=== PATIENT | female | born 1985 ===

== ENCOUNTER 2016-11-23 10:34 | Emergency (ER) | payer OTHER ==
[2016-11-23 10:55] VITALS: BMI 28.3
[2016-11-23 10:57] VITALS: BP 149/81; PULSE 82; RESP 17; TEMP 98; O2SAT 100
--- NOTE | 2016-11-23 11:53 | ED PDOC ---
HPI: Chest Pain Time Seen by Provider: 11/23/16 11:20 Chief Complaint (Nursing): Back Pain Chief Complaint (Provider): Right sided chest pain x 1 week History Per: Patient History/Exam Limitations: no limitations Onset/Duration Of Symptoms: Days Current Symptoms Are (Timing): Still Present Additional Complaint(s): Pt states she has a chronic dry cough but for one week she has been having right sided chest pain, worse with coughing. Pt states she has never had this before although the cough has been constant with her asthma. Pt states she stopped smoking 1 week ago when she was told she had fluid in her lungs last weeks when she was seen at [facility] [place]. Pt states that is also now having right leg pain, posterior leg, mostly in the calf. Pt states it is very mild but also in the left left. Pt states she is on the depo shot. Past Medical History Reviewed: Historical Data, Nursing Documentation, Vital Signs Vital Signs: Last Vital Signs Temp 98 F 11/23/16 10:55 Pulse 82 11/23/16 10:55 Resp 17 11/23/16 10:55 BP 149/81 11/23/16 10:55 Pulse Ox 100 11/23/16 11:54 - Medical History PMH: Asthma - Surgical History Surgical History: No Surg Hx - Family History Family History: States: No Known Family Hx - Living Arrangements Living Arrangements: With Family - Social History Current smoker - smoking cessation education provided: Yes (Stopped one week ago ) Alcohol: None Drugs: Denies - Allergies Allergies/Adverse Reactions: Allergies Allergy/AdvReac Type Severity Reaction Status Date / Time morphine Allergy ITCHING Verified 11/23/16 14:35 Review of Systems ROS Statement: Except As Marked, All Systems Reviewed And Found Negative Cardiovascular: Positive for: Chest Pain Respiratory: Positive for: Cough Musculoskeletal: Positive for: Leg Pain Physical Exam - Reviewed Nursing Documentation Reviewed: Yes Vital Signs Reviewed: Yes - Physical Exam Appears: Positive for: Well, Non-toxic, No Acute Distress Head Exam: Positive for: ATRAUMATIC, NORMAL INSPECTION, NORMOCEPHALIC Skin: Positive for: Normal Color, Warm, DRY Eye Exam: Positive for: Normal appearance ENT: Positive for: Normal ENT Inspection Neck: Positive for: Normal, Painless ROM Cardiovascular/Chest: Positive for: Regular Rate, Rhythm Respiratory: Positive for: Normal Breath Sounds. Negative for: Accessory Muscle Use, Respiratory Distress Gastrointestinal/Abdominal: Positive for: Normal Exam, Bowel Sounds, Soft. Negative for: Tenderness Back: Positive for: Normal Inspection Extremity: Positive for: Normal ROM, Calf Tenderness Neurologic/Psych: Positive for: Alert, Oriented - Laboratory Results Result Diagrams: 11/23/16 12:00 11/23/16 12:00 - ECG O2 Sat by Pulse Oximetry: 100 Disposition - Clinical Impression Clinical Impression: Back pain - Disposition Referrals: [facility] [Outside] Disposition: Routine/Home Disposition Time: 18:18 Condition: GOOD Instructions: Chest Pain (ED)
[2016-11-23 12:20] LABS: HEMATOCRIT 41.8 % (34.0-47.0); MEAN CELL VOLUME 93.8 fl (81.0-99.0); MEAN CORPUSCULAR HEMOGLOBIN 32.1 pg (27.0-31.0); MEAN CORPUSCULAR HGB CONC 34.2 g/dL (33.0-37.0); RED CELL DISTRIBUTION WIDTH 13.1 % (11.5-14.5); WHITE BLOOD COUNT 8.2 K/uL (4.8-10.8)
[2016-11-23 12:29] LABS: ALB/GLOB RATIO 1.2 (1.0-2.1); ALKALINE PHOSPHATASE 64 U/L (38-126); ALT/SGPT 36 U/L (9-52); AST/SGOT 69 U/L (14-36); BILIRUBIN,TOTAL 0.9 mg/dl (0.2-1.3); BLOOD UREA NITROGEN 16 mg/dl (7-17); CALCIUM 8.9 mg/dL (8.4-10.2); CARBON DIOXIDE 21 mmol/L (22-30); CHLORIDE 109 mmol/L (98-107); GFR AFRICAN-AMERICAN > 60; GLUCOSE,RANDOM 100 mg/dL (65-105); SODIUM 141 mmol/l (132-148); TOTAL PROTEIN 7.2 G/DL (6.3-8.2)
[2016-11-23 12:30] LABS: POTASSIUM 4.5 MMOL/L (3.6-5.0)
[2016-11-23 12:42] LABS: PARTIAL THROMBOPLASTIN TIME 26.8 SECONDS (23.3-32.5)
--- NOTE | 2016-11-23 14:02 | US ---
PROCEDURE: Bilateral lower extremity venous duplex Doppler. HISTORY: calf pain COMPARISON: None available. TECHNIQUE: Bilateral common femoral, superficial femoral, popliteal and posterior tibial veins were evaluated. Flow was assessed with color Doppler, compressibility, assessment of phasic flow and augmentation response. FINDINGS: COMMON FEMORAL VEIN: Right CFV: Unremarkable. Left CFV: Unremarkable. SUPERFICIAL FEMORAL VEIN: Right SFV: Unremarkable. Left SFV: Unremarkable. POPLITEAL VEIN: Right Popliteal: Unremarkable. Left Popliteal: Unremarkable. POSTERIOR TIBIAL VEIN: Right PTV: Unremarkable. Left PTV: Unremarkable. OTHER FINDINGS: None. IMPRESSION: No evidence of deep venous thrombosis.
[2016-11-23] MEDS ORDERED: DiphenhydrAMINE 50 mg/ml Inj ONE (14:28)
[2016-11-23] MEDS: DiphenhydrAMINE 50 mg/ml Inj IVP STA (14:36)
--- NOTE | 2016-11-23 15:44 | RAD ---
HISTORY: chest pain with coughing COMPARISON: No prior. TECHNIQUE: Chest PA and lateral FINDINGS: LUNGS: No active pulmonary disease. PLEURA: No significant pleural effusion identified. No pneumothorax apparent. CARDIOVASCULAR: Normal. OSSEOUS STRUCTURES: No significant abnormalities. VISUALIZED UPPER ABDOMEN: Normal. OTHER FINDINGS: None. IMPRESSION: No active disease.
[2016-11-23] MEDS ORDERED: Iodixanol 320 MG/ML 100 ML BOTTLE IV ONE (16:04)
[2016-11-23] MEDS ORDERED: Sodium Chloride 0.9% 50 ML IV ONE (16:05)
[2016-11-23 16:54] LABS: RBC URINE 3 /hpf (0-3); URINE BACTERIA RARE (<OCC); URINE BILIRUBIN NEGATIVE (NEGATIVE); URINE BLOOD NEGATIVE (NEGATIVE); URINE COLOR YELLOW (YELLOW); URINE GLUCOSE (UA) NEG (Normal); URINE KETONE NEGATIVE (NEGATIVE); URINE LEUKOCYTE ESTERASE MOD Leu/uL (Negative); URINE PROTEIN 30 mg/dL (NEGATIVE); URINE UROBILINOGEN 0.2-1.0 mg/dL (0.2-1.0); WBC URINE 6 /hpf (0-5)
--- NOTE | 2016-11-23 17:58 | CT ---
PROCEDURE: CT Chest with contrast (Pulmonary Angiogram) HISTORY: Right-sided chest pain COMPARISON: None available. TECHNIQUE: Axial computed tomography images were obtained of the chest in the pulmonary arterial phase of enhancement. Coronal and sagittal reformatted images were created and reviewed. Intravenous contrast dose: 90 mL Visipaque 320 Radiation dose: Total exam DLP = 333.37 MGy-cm. FINDINGS: PULMONARY ARTERIES: There are no filling defects in the central pulmonary arteries or segmental branches to suggest acute pulmonary embolism. AORTA: The aorta is normal in caliber. No evidence of aortic aneurysm or dissection. LUNGS: The lungs are well inflated. There is a 3 mm subpleural nodule in the superior segment of the right lower lobe laterally. There is mild left basilar atelectasis. No suspicious nodule, mass or pulmonary consolidation. PLEURAL SPACES: No effusion or pneuomothorax. HEART: No cardiomegaly. No significant pericardial effusion. LYMPH NODES: No lymphadenopathy. BONES, CHEST WALL: Within normal limits. No fracture or destructive lesion OTHER FINDINGS: Unremarkable. IMPRESSION: 1. No CTA evidence for acute pulmonary embolism, aortic aneurysm or aortic dissection. 2. Clear lungs.
== END 2016-11-23 18:28 | disposition home or self-care (01) ==
LOC: H.ER 10:34
DX: R07.9 Chest pain, unspecified (principal); M54.9 Dorsalgia, unspecified; R05 Cough; M79.604 Pain in right leg